=== PATIENT | male | born 1970 | race Caucasian/White ===

== ENCOUNTER 2023-03-08 09:23 | Emergency (ER) | payer OTHER ==
[~2023-03-08] VITALS: Ht 175.3 cm; Wt 117.9 kg
[2023-03-08 09:42] VITALS: BP 138/93; PULSE 73; RESP 18; TEMP 98.1; O2SAT 97
[2023-03-08] MEDS ORDERED: KETOROLAC 60 MG/2 ML VIAL IM ONE (10:45)
[2023-03-08] MEDS ORDERED: IBUP-2213 PO (11:10)
[2023-03-08] MEDS ORDERED: HYDR-5191 PO (11:10)
[2023-03-08 11:54] VITALS: BP 123/71; PULSE 72; RESP 16; TEMP 98; O2SAT 98
== END 2023-03-08 11:54 | disposition home or self-care (01) ==
LOC: MED 09:23
DX: M54.50 Low back pain, unspecified (principal)
CPT/HCPCS: 81002; 96372; 99283; J1885

== ENCOUNTER 2023-03-11 11:52 | Emergency (ER) | payer OTHER ==
[~2023-03-11] VITALS: Ht 175.3 cm; Wt 117.9 kg
[~2023-03-11 11:52] MED LIST: HYDR-5191 PO; IBUP-2213 PO
[2023-03-11 12:45] VITALS: BP 100/47; PULSE 84; RESP 16; TEMP 97.6; O2SAT 94
[2023-03-11] MEDS ORDERED: KETOROLAC 30 MG/ML VIAL IVP ONE (12:55)
[2023-03-11 13:20] LABS: BASOPHILS # (AUTO) 0.1 K/uL (0.00-0.22); BASOPHILS % (AUTO) 0.8 % (0.0-2.0); EOSINOPHILS # (AUTO) 0.3 K/uL (0-0.4); EOSINOPHILS % (AUTO) 5.1 % (0.0-4.0); HEMATOCRIT 43.9 % (36-52); HEMOGLOBIN 15.1 g/dL (12.0-18.0); LYMPHOCYTES # (AUTO) 2.1 K/uL (2.0-11.5); MEAN CORPUSCULAR HEMOGLOBIN 29 pg (27-31); MEAN CORPUSCULAR HGB CONC 35 g/dL (33-37); MONOCYTES # (AUTO) 0.8 K/uL (0.8-1.0); MONOCYTES % (AUTO) 11.7 % (1.7-9.3); NEUTROPHILS # (AUTO) 3.5 K/uL (1.8-7.7); NEUTROPHILS % (AUTO) 51.4 % (42.2-75.2); PLATELET COUNT (AUTO) 318 K/uL (140-450); RED BLOOD CELL COUNT(AUTO) 5.17 MIL/uL (4.20-6.10); RED CELL DISTRIBUTION WIDTH 13.3 % (11.6-13.7); WHITE BLOOD COUNT (AUTO) 6.8 K/uL (4.8-10.8)
[2023-03-11 13:30] LABS: APPEARANCE,URINE CLEAR (CLEAR); BILIRUBIN,URINE NEGATIVE (NEGATIVE); BLOOD, URINE TRACE-I (NEGATIVE); COLOR,URINE YELLOW (YELLOW); LEUKOCYTE ESTERASE ,URINE NEGATIVE (NEGATIVE); NITRITE, URINE NEGATIVE (NEGATIVE); PROTEIN,URINE TRACE (NEGATIVE); UGLUCOSE NEGATIVE (NEGATIVE); UROBILINOGEN,URINE 0.2 EU/dL (0.2 - 1)
[2023-03-11 13:44] LABS: RBC,URINE 0-5 /HPF (0-5)
[2023-03-11 13:45] LABS: BACTERIA,URINE OCCASSIONAL /HPF (None Seen); SQUAMOUS EPITHELIAL CELL,UR 4-10 (MOD) /LPF (0-3 (FEW)); WBC,URINE 0-5 /HPF (0-5)
[2023-03-11 13:51] LABS: ALBUMIN 3.8 g/dL (3.4-5.0); ANION GAP 12.5 (8-16); CALCIUM 8.9 mg/dL (8.5-10.1); CARBON DIOXIDE 24.3 mmol/L (21-32); CREATININE 0.8 mg/dL (0.6-1.3); POTASSIUM 3.8 mmol/L (3.5-5.1); TOTAL BILIRUBIN 0.8 mg/dL (0.0-1.0); TOTAL PROTEIN, SERUM 7.7 g/dL (6.4-8.2)
[2023-03-11 14:01] VITALS: O2SAT 94
[2023-03-11] MEDS ORDERED: LIDOCAINE 5% 1 EA PATCH TP SCH (15:10)
[2023-03-11] MEDS ORDERED: HYDROcodone/APAP 5/325 MG 1 TAB TAB PO ONE (15:10)
[2023-03-11] MEDS ORDERED: methocarbamoL 500 MG TAB PO ONE (15:10)
[2023-03-11] MEDS ORDERED: METH-1681 PO (15:58)
[2023-03-11] MEDS ORDERED: HYDR-4490 PO (15:58)
[2023-03-11] MEDS ORDERED: LID5T TP (15:58)
[2023-03-11] MEDS ORDERED: NAPR-1704 PO (15:58)
[2023-03-11 16:06] VITALS: BP 133/83; PULSE 94; RESP 12; TEMP 98.1; O2SAT 99
== END 2023-03-11 16:06 | disposition home or self-care (01) ==
LOC: MED 11:52
DX: R10.32 Left lower quadrant pain (principal); M54.50 Low back pain, unspecified; Z79.899 Other long term (current) drug therapy
CPT/HCPCS: 36415; 74176; 80053; 81001; 83690; 85025; 96374; 99285; J1885